=== PATIENT | female | born 1955 | race American Indian/Alaskan Native ===

== ENCOUNTER 2018-07-16 16:40 | Emergency (ER) | payer MEDICARE ==
[2018-07-16] MEDS ORDERED: NORVASC ONE (17:31)
[2018-07-16] MEDS ORDERED: NORCO 10/325 ONE (17:32)
[2018-07-16] MEDS ORDERED: NORCO 10/325 PO ONE (17:32)
[2018-07-16] MEDS ORDERED: ZOFRAN ODT ONE (17:32)
[2018-07-16] MEDS ORDERED: NORVASC PO ONE (17:32)
[2018-07-16] MEDS ORDERED: ZOFRAN ODT PO ONE (17:32)
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
[2018-07-16 22:57] VITALS: BP 181/83
[2018-07-17] MEDS ORDERED: REGLAN PO ONE (00:56)
[2018-07-17] MEDS ORDERED: DECADRON IM ONE (00:56)
[2018-07-17] MEDS ORDERED: BANOPHEN PO ONE (00:56)
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
== END 2018-07-17 01:18 | disposition home or self-care (01) ==
LOC: EDSEX → ED 16:40
DX: J32.9 Chronic sinusitis, unspecified (principal); I10 Essential (primary) hypertension; J45.909 Unspecified asthma, uncomplicated; Z90.711 Acquired absence of uterus with remaining cervical stump; Z88.0 Allergy status to penicillin; Z88.2 Allergy status to sulfonamides
CPT/HCPCS: 70450; 96372; 99283; J1100; Q0162; Q0163